=== PATIENT | male | born 1960 | race American Indian/Alaskan Native ===

== ENCOUNTER 2019-05-06 18:44 | Emergency (ER) | payer OTHER ==
[~2019-05-06 18:44] MED LIST: ADRENALIN ONE
--- NOTE | 2019-05-06 19:57 | Emergency Department Report ---
ED CPR HPI - General Chief Complaint: Cardiac Arrest/CPR Stated Complaint: CARDIAC ARREST Time Seen by Provider: 05/06/19 18:58 Source: family, EMS (verbal report received from EMS. EMS documentation not available at time of chart dictation ) Mode of arrival: Stretcher Limitations: Other - History of Present Illness Initial Comments: This is a 58-year-old gentleman. This patient is not known to this provider previously. He is brought to the hospital by emergency medical services is out of hospital cardiac arrest. As per family, patient was at home, and began to "gurgle", and became unresponsive. It is not known if family administered CPR. Emergency medical services were activated. EMS found the patient pulseless and not breathing. Patient is intubated, has left proximal humerus intraosseous line established, and receives aggressive CPR, and standard ACLS interventions. Upon arrival to the emergency room, pupils are pinpoint and do not react to light. He has no pulses. Bedside cardiac ultrasound does not demonstrate any coordinated ventricular activity. Patient received standard ACLS interventions, including epinephrine, chest compressions. Please see code sheet for details. Unfortunately, pulses cannot be obtained, and resuscitation efforts were subsequently terminated. The patient's family was informed. MD Complaint: stopped breathing -: minute(s) Place: home Initial Findings in the Field: no pulse, PEA Treatments Prior to Arrival: intubation, chest compressions, epinephrine mgs #, other ED Review of Systems ROS: Stated complaint: CARDIAC ARREST Other details as noted in HPI Comment: Unobtainable due to pts medical conditions ED Past Medical Hx - Past Medical History Previous Medical History?: Yes Hx Hypertension: Yes Hx Heart Attack/AMI: Yes Hx Dementia: Yes Additional medical history: cardiac arrest - Surgical History Past Surgical History?: Yes Hx Pacemaker: Yes Additional Surgical History: Rigth BKA, Left AKA ED Physical Exam - General Limitations: Other (she arrives with CPR in progress, endotracheal tube in place) General appearance: obese - Head Head exam: Present: atraumatic, normocephalic - Eye Eye exam: Present: normal appearance, other (the pupils do not react to light) - ENT ENT exam: Present: other (endotracheal tube noted in the oropharynx) - Neck Neck exam: Present: normal inspection - Respiratory Respiratory exam: Present: other (breath sounds not appreciated almost [id number]-tdig ventilation is applied). Absent: normal lung sounds bilaterally (no breath sounds appreciated) - Cardiovascular Cardiovascular Exam: Absent: regular rate, normal rhythm, normal heart sounds (the patient is pulseless), systolic murmur, diastolic murmur, rubs, gallop - GI/Abdominal GI/Abdominal exam: Present: soft - Rectal Rectal exam: Present: deferred - exam: Present: normal inspection - Extremities Exam Extremities exam: Present: other (status post bilateral lower extremity agitations.) - Back Exam Back exam: Present: normal inspection - Neurological Exam Neurological exam: Present: other (the patient is nonverbal) - Psychiatric Psychiatric exam: Present: other (the patient is nonverbal) - Skin Skin exam: Present: warm. Absent: rash - Central Line Placement Right Femoral Consent Obtained: emergent situation Time Out Performed: No Patient Placed on Monitor/Pulse Ox: Yes Prep: mask, gloves Ultrasound Used for Placement: Yes Central Line Lumen Inserted: triple Bloods Obtained for Lab: No Patient Tolerated Procedure: other Complications: none Additional Comments: Patient receiving active CPR, intraosseous line was lost, therefore, patient emergently administratively consented by myself for ultrasound-guided central line placement in the right femoral groin. Landmarks are identified, and the femoral vein is identified using ultrasound guidance. Patient receiving CPR. The femoral vein is identified, cannulated, and the triple-lumen catheter is inserted. However, resuscitation efforts were terminated, secondary to medical futility, and lack of pulses. Therefore, the procedure was not completed secondary to the patient expiring Critical care attestation.: If time is entered above; I have spent that time in minutes in the direct care of this critically ill patient, excluding procedure time. ED Disposition Clinical Impression: Cardiac arrest Disposition: DC-20 Is pt being admited?: No Does the pt Need Aspirin: No Condition: Undetermined
== END 2019-05-06 21:51 ==
LOC: ED 18:44
DX: I46.9 Cardiac arrest, cause unspecified (principal); I11.0 Hypertensive heart disease with heart failure; I50.9 Heart failure, unspecified; F03.90 Unspecified dementia, unspecified severity, without behavioral disturbance, psychotic disturbance, mood disturbance, and anxiety; Z95.818 Presence of other cardiac implants and grafts; Z79.899 Other long term (current) drug therapy
CPT/HCPCS: 36556; 92950; 99285; J0171